=== PATIENT | female | born 1955 | race African-American/Black ===

== ENCOUNTER 2017-01-30 01:47 | Emergency (ER) | payer MEDICAID ==
[~2017-01-30] VITALS: Ht 152.4 cm; Wt 86.3 kg
[2017-01-30 02:45] LABS: BASOPHILS % 0.4 % (0.0-2.0); EOSINOPHILS % 3.8 % (0.0-5.0); HEMATOCRIT. 38.5 % (36.0-48.0); HEMOGLOBIN. 13.3 g/dL (12.0-16.0); LYMPHOCYTES % 25.4 % (20.0-50.0); MEAN CORPUSCULAR HEMOGLOBIN 30.3 pg (28.0-32.0); MEAN CORPUSCULAR VOLUME 87.4 fL (81.0-99.0); MEAN PLATELET VOLUME 7.3 fl (7.4-10.4); MONOCYTES % 7.9 % (2.0-8.0); NEUTROPHILS % 62.5 % (40.0-76.0); PLATELET 279 x1000/uL (130-400); RED CELL DISTRIBUTION WIDTH 14.3 % (11.6-14.6)
[2017-01-30 02:55] LABS: D-DIMER 0.19 mg/L FEU (<0.50); PARTIAL THROMBOPLASTIN TIME 27.6 sec (24.0-34.0); PROTHROMBIN TIME 10.7 sec
[2017-01-30 03:00] LABS: CARBON DIOXIDE 32 mEq/L (21-32); CHLORIDE 104 mEq/L (98-107); TROPONIN I < 0.02 ng/mL (0.00-0.04)
[2017-01-30 04:03] VITALS: BP 138/74
== END 2017-01-30 04:20 | disposition left against medical advice (07) ==
LOC: ER 01:53 → CANBEDREQ 06:52
DX: R07.89 Other chest pain (principal); I10 Essential (primary) hypertension; Z90.710 Acquired absence of both cervix and uterus
CPT/HCPCS: 36415; 71010; 80048; 83880; 84484; 85025; 85379; 85610; 85730; 93005; 99285; Z7610